=== PATIENT | male | born 1980 | race African-American/Black ===

== ENCOUNTER 2020-11-03 13:51 | Inpatient (IN) ==
[2020-11-03 13:57] VITALS: BMI 32.6
[2020-11-03] MEDS ORDERED: NS 1000 ML 1,000 ML IV ONE (17:58)
[2020-11-03] MEDS ORDERED: NS 1000 ML 1,000 ML ONE (18:09)
[2020-11-03 18:28] LABS: ABG BASE EXCESS 0.3 mmol/L (-2.0-2.0); ABG HCO3 22.9 mmol/L (22-26)
[2020-11-03 18:29] LABS: ABG ALLEN TEST POSITIVE
[2020-11-03 18:47] LABS: BASOPHILS % (AUTO) 0.3 % (0.2-1.0); HEMATOCRIT 49.2 % (42.0-54.0); HEMOGLOBIN 16.7 g/dL (13.5-18.0); LYMPHOCYTES % (AUTO) 11.1 % (21.0-51.0); MEAN CORPUSCULAR HEMOGLOBIN 29.5 pg (27.0-34.0); MEAN CORPUSCULAR VOLUME 86.8 fL (80.0-100.0); MEAN PLATELET VOLUME 8.3 fL (7.4-11.0); MONOCYTES # (AUTO) 0.3 x10^3/uL (0.3-0.8); MONOCYTES % (AUTO) 3.5 % (0.0-13.0); NEUTROPHILS # (AUTO) 7.6 x10^3/uL (2.2-4.8); NEUTROPHILS % (AUTO) 85.1 % (42.0-75.0); PLATELET COUNT 285 X10^3/uL (150.0-450.0); RED BLOOD COUNT 5.66 X10^6/uL (4.7-6.0); RED CELL DISTRIBUTION WIDTH 13.2 % (11.6-16.5); WHITE BLOOD COUNT 8.9 X10^3/uL (3.6-10.0)
[2020-11-03 18:59] LABS: ALANINE AMINOTRANSFERASE 49 Units/L (12-78); ALKALINE PHOSPHATASE 58 Units/L (46-116); ASPARTATE AMINO TRANSFERASE 46 Units/L (15-37); BLOOD UREA NITROGEN 23 mg/dL (7-18); CALCIUM 8.6 mg/dL (8.5-10.1); CARBON DIOXIDE 29.6 mmol/L (21-32); CHLORIDE 100 mmol/L (98-107); COR CA(FOR HYPOALB) 9.4 mg/dL (8.5-10.1); CREATININE 1.62 mg/dL (0.70-1.30); SODIUM 138 mmol/L (136-145); TOTAL PROTEIN 8.3 g/dL (6.4-8.2); eGFR NON BLACK RACES 51 (>60)
[2020-11-03] MEDS ORDERED: TYLENOL 325 MG TAB PO ONE ×2 (19:15→19:17)
--- NOTE | 2020-11-03 19:18 | RAD ---
HISTORYSOB, COVID+STUDYCHEST, 1 VIEWCOMPARISONAugust 2020TECHNIQUEChest radiographic imaging, AP portable projection, 1 imageFINDINGSNo cardiomegaly.Bilateral diffuse airspace opacities in the same distribution as on the previous exam.No pleural effusion.No pneumothorax.No acute osseous abnormality.IMPRESSIONFindings are consistent with the given history of a COVID-19 respiratory infection. Overall, no significant changes when compared to the previous exam given the differences in technique.Electronically signed by: Charles Eckert (Nov 03, 2020 19:16:02)
--- NOTE | 2020-11-03 22:11 | DR.SOBA ---
HPI Time Seen Time Seen by Provider: 11/03/20 21:57 Primary Care Physician Primary Care Physician: TATIANA CEDILLO HPI Comment HPI Comment: According to pt he developed cold like symptoms and was tested pos for covid last thursday .pt has used z pack steroids .has noticed gradual worsening of shortness of breath associated with cough .here to have it checked Has family members at home Complaints Chief Complaint Doctors Comments: shortness of breath Chief Complaint:: PT REPORTS TESTING POSITVE FOR COVID, A WEEK AND PT WAS ON DEXAMETHAZONE, ZPACK ,BR PT REPORTS NOT GETTING ANY BETTER , WEAKNESS, TEMP OF 104.0 AND MOVING WITH > SOB .BR Reviewed Nurses Notes Reviewed: Yes Source History Provided: Patient Mode of Arrival Mode of Arrival: Ambulatory Timing Onset of Chief Complaint: 10/26/20 Duration Duration: Days Context Onset:: With Light Exertion PE Risk Factors:: None Currently on:: Steroids Prehospital Care:: None Modifying Factors Worsens:: Exertion Associated Signs and Symptoms Associated Signs and Symptoms: Cough If Cough Cough: Nonproductive PMH PMH Past Medical History: No Past Surgical History: No Family History History of Family Medical Conditions: No Social History Does patient currently use any type of tobacco product: No Have you used tobacco products in the last 12 months: No Type of Tobacco Use: None Does any household member use tobacco: No Alcohol Use: None Do you use any recreational Drugs:: No Lives With: Family Lives Where: Home Infectious screening In the last 2 months have you had wt loss of >10#?: NO Have you had fever, night sweats or hemotysis?: No Have you traveled outside the country in the last 6 months?: No Isolation: Droplet ROS Review of Systems Constitutional: Chills, Fever, Malaise and Fatigue Eyes: No Symptoms Reported ENTM: No Symptoms Reported Respiratoy: Non-Productive Cough Cardiovascular: No Symptoms Reported Gastrointestinal/Abdominal: No Symptoms Reported Genitourinary: No Symptoms Reported Neurological: No Symptoms Reported Musculoskeletal: No Symptoms Reported Integumentary: No Symptoms Reported PE Vital Signs Vitals: Temperature 96.3 F Pulse Rate 102 Respiratory Rate 20 Blood Pressure 134/78 O2 Sat by Pulse Oximetry 88 General Limitations: No Limitations Head Head Exam: Normal Inspection Eyes Eye exam: PERRL and EOMI ENT ENT Exam: Normal Oropharynx Chest Chest Inspection: Normal Inspection and Symmetric Chest Wall Rise Respiratory Respiratory Exam: Bilateral: Crackles Cardiovascular Cardiovascular Exam: +S1 and +S2 Abdominal Exam Abdominal Exam: Normal Bowel Sounds and Soft Extremities Extremities Exam: Normal Inspection and Full ROM Neurologic Neurological Exam: Alert and Oriented X3 Skin Skin Exam: Normal Color MDM Differential Diagnosis Differential Diagnosis Comment:: covid 19 infection,shortness of breath COURSE Treatment Treatment: labs,cxr .Pt has covid pneumonia.his oxygen over 94% on 5-6 l of oxygen .spoke with Dr. Chan agreed to admit patient remdesivir infusion done tolerated well ROR Labs Reviewed Laboratory Results Reviewed?: Yes Result Diagrams: 11/03/20 18:06 11/03/20 18:06 Laboratory: WBC 8.9 X10^3/uL (3.6-10.0) 11/03/20 18:06 RBC 5.66 X10^6/uL (4.7-6.0) 11/03/20 18:06 Hgb 16.7 g/dL (13.5-18.0) 11/03/20 18:06 Hct 49.2 % (42.0-54.0) 11/03/20 18:06 MCV 86.8 fL (80.0-100.0) 11/03/20 18:06 MCH 29.5 pg (27.0-34.0) 11/03/20 18:06 MCHC 34.0 g/dL (33.0-35.0) 11/03/20 18:06 RDW 13.2 % (11.6-16.5) 11/03/20 18:06 Plt Count 285 X10^3/uL (150.0-450.0) 11/03/20 18:06 MPV 8.3 fL (7.4-11.0) 11/03/20 18:06 Neut % (Auto) 85.1 % (42.0-75.0) H 11/03/20 18:06 Lymph % (Auto) 11.1 % (21.0-51.0) L 11/03/20 18:06 [place] % (Auto) 3.5 % (0.0-13.0) 11/03/20 18:06 Eos % (Auto) 0.0 % (0.9-2.9) L 11/03/20 18:06 Baso % (Auto) 0.3 % (0.2-1.0) 11/03/20 18:06 Neut # (Auto) 7.6 x10^3/uL (2.2-4.8) H 11/03/20 18:06 Lymph # (Auto) 1.0 X10^3/uL (1.3-2.9) L 11/03/20 18:06 [place] # (Auto) 0.3 x10^3/uL (0.3-0.8) 11/03/20 18:06 Eos # (Auto) 0.0 x10^3/uL (0.0-0.2) 11/03/20 18:06 Baso # (Auto) 0.0 X10^3/uL (0.0-0.1) 11/03/20 18:06 Absolute Nucleated RBC 0.3 /100WBC 11/03/20 18:06 D-Dimer 0.63 ug/ml (0.0-0.57) H* 11/03/20 18:06 Sample Site Rr 11/03/20 17:56 ABG pH 7.490 (7.35-7.45) H 11/03/20 17:56 ABG pCO2 30.0 mmHg (35.0-45.0) L 11/03/20 17:56 ABG pO2 53.0 mmHg (80.0-100.0) L 11/03/20 17:56 ABG HCO3 22.9 mmol/L (22-26) 11/03/20 17:56 ABG O2 Saturation 90.0 % (90-100) 11/03/20 17:56 ABG Base Excess 0.3 mmol/L (-2.0-2.0) 11/03/20 17:56 Rc Test Positive 11/03/20 17:56 A-a Gradient 166.0 mmHg 11/03/20 17:56 FiO2 36.0 11/03/20 17:56 Blood Gas Comments Rt traiged elsewhere 11/03/20 17:56 Sodium 138 mmol/L (136-145) 11/03/20 18:06 Corrected Sodium TNP 11/03/20 18:06 Potassium 4.1 mmol/L (3.5-5.1) 11/03/20 18:06 Chloride 100 mmol/L (98-107) 11/03/20 18:06 Carbon Dioxide 29.6 mmol/L (21-32) 11/03/20 18:06 BUN 23 mg/dL (7-18) H 11/03/20 18:06 Creatinine 1.62 mg/dL (0.70-1.30) H 11/03/20 18:06 Est GFR (MDRD) Af Amer > 60 (>60) 11/03/20 18:06 Est GFR (MDRD) Non-Af 51 (>60) L 11/03/20 18:06 Glucose 104 mg/dL (65-99) H 11/03/20 18:06 Calcium 8.6 mg/dL (8.5-10.1) 11/03/20 18:06 Corrected Calcium 9.4 mg/dL (8.5-10.1) 11/03/20 18:06 Ferritin 767 ng/mL (26-388) H 11/03/20 18:06 Total Bilirubin 0.90 mg/dL (0.2-1.0) 11/03/20 18:06 AST 46 Units/L (15-37) H 11/03/20 18:06 ALT 49 Units/L (12-78) 11/03/20 18:06 Alkaline Phosphatase 58 Units/L (46-116) 11/03/20 18:06 C-Reactive Protein 195.20 mg/L (0-3.0) H 11/03/20 18:06 Total Protein 8.3 g/dL (6.4-8.2) H 11/03/20 18:06 Albumin 3.0 g/dL (3.4-5.0) L 11/03/20 18:06 Globulin 5.3 g/dL (2.5-4.5) H 11/03/20 18:06 Albumin/Globulin Ratio 0.6 Ratio (1.1-2.1) L 11/03/20 18:06 Opioid Opioid Risk Tool Total: 0 Total Score Risk Category: Low Risk Copyright: Hang LR predicting aberrant behaviors Diagnosis Discharge Problem: Pneumonia due to COVID-19 virus, Hypoxia
--- NOTE | 2020-11-03 23:01 | CT ---
HISTORYElevated d-dimerSTUDYCTA CHESTCOMPARISONChest radiograph, November 03, 2020TECHNIQUEAxial CT images of the chest were obtained after the administration of 100 mL Omnipaque 350 IV contrast utilizing a CTA protocol. 3D MIPS were performed and reviewed for further evaluation.Radiation dose: 614.00 mGy-cm total DLPFINDINGSNo significant pericardial effusion.No mediastinal or hilar lymphadenopathy.Aorta is normal in caliber without dissection.Contrast density in the main pulmonary artery measures 124 Hounsfield units; limiting evaluation for peripheral pulmonary emboli.No filling defects in the central or proximal lobar pulmonary arteries to suggest a central pulmonary embolus.Airways are widely patent.Thyroid appears normal.No pleural effusion.Bilateral diffuse airspace opacities involving all lobes of both lungs; centered in the perihilar regions.No pneumothorax.No concerning lung parenchymal lesion identified.Imaged portion of the upper abdomen is unremarkable.No acute osseous abnormality.IMPRESSION1. Diffuse bilateral airspace opacities centered in the perihilar regions. Findings are consistent with the given history of a COVID-19 respiratory infection.2. Contrast density in the main pulmonary artery measures 124 Hounsfield units; limiting evaluation for peripheral pulmonary emboli. No filling defects in the central or proximal lobar pulmonary arteries to suggest a central pulmonary embolus.Electronically signed by: Charles Eckert (Nov 03, 2020 22:59:53)
[2020-11-03] MEDS ORDERED: SOLU-Medrol 125 MG VIAL IVP ONE (23:10)
[2020-11-03] MEDS ORDERED: REMDESIVIR 200 MG in NS 250 ML IV 250 ML IV ONE (23:10)
[2020-11-03] MEDS ORDERED: BENADRYL INJ 50 MG VIAL IV ONE (23:10)
[2020-11-04] MEDS ORDERED: REMDESIVIR IV ONE ×3 (00:26→21:30)
[2020-11-04] MEDS ORDERED: BENADRYL INJ 50 MG VIAL ONE (00:26)
[2020-11-04] MEDS ORDERED: SOLU-Medrol 125 MG VIAL ONE ×4 (00:26→21:30)
[2020-11-04] MEDS ORDERED: NS 250 ML IV 250 ML IV ONE ×3 (00:27→11:28)
[2020-11-04] MEDS ORDERED: TYLENOL 325 MG TAB PO ONE ×2 (00:33→00:45)
[2020-11-04] MEDS ORDERED: DECADRON INJ ONE (01:27)
[2020-11-04] MEDS ORDERED: DECADRON INJ IVP SCH (02:00)
[2020-11-04] MEDS ORDERED: VISTARIL PO ONE ×2 (04:09→21:30)
[2020-11-04] MEDS: VISTARIL PO PRN (04:15)
[2020-11-04] MEDS: BROVANA IN SCH (09:50)
[2020-11-04] MEDS: PULMICORT NEB TX 0.5 MG NEB SCH (09:50)
[2020-11-04] MEDS ORDERED: PROTONIX INJ 40 MG VIAL ONE ×2 (11:26→21:31)
[2020-11-04] MEDS ORDERED: LOVENOX INJ 40 MG SYR SC ONE ×2 (11:27→21:30)
[2020-11-04] MEDS ORDERED: ZITHROMAX INJ 500 MG VIAL IV ONE (11:27)
[2020-11-04] MEDS ORDERED: NS 1000 ML 1,000 ML ONE (11:28)
[2020-11-04] MEDS ORDERED: ROBITUSSIN DM ONE ×3 (11:28→21:31)
[2020-11-04] MEDS: SOLU-Medrol 125 MG VIAL IVP SCH ×3 (11:34→22:14)
[2020-11-04] MEDS: PROTONIX INJ 40 MG VIAL IVP SCH ×2 (11:34→22:13)
[2020-11-04] MEDS: LOVENOX INJ 40 MG SYR SC SCH ×2 (11:34→22:12)
[2020-11-04] MEDS: ZITHROMAX INJ 500 MG VIAL 500 MG in NS 250 ML IV 250 ML IV SCH (11:35)
[2020-11-04 11:54] LABS: ABG BASE EXCESS 1.9 mmol/L (-2.0-2.0); ABG HCO3 25.6 mmol/L (22-26)
[2020-11-04 11:55] LABS: ABG ALLEN TEST POS
[2020-11-04 12:27] LABS: BASOPHILS % (AUTO) 0.2 % (0.2-1.0); HEMATOCRIT 45.1 % (42.0-54.0); HEMOGLOBIN 15.4 g/dL (13.5-18.0); LYMPHOCYTES # (AUTO) 0.6 X10^3/uL (1.3-2.9); MEAN CORPUSCULAR HEMOGLOBIN 29.5 pg (27.0-34.0); MEAN CORPUSCULAR VOLUME 86.7 fL (80.0-100.0); MONOCYTES # (AUTO) 0.2 x10^3/uL (0.3-0.8); MONOCYTES % (AUTO) 3.3 % (0.0-13.0); NEUTROPHILS % (AUTO) 83.5 % (42.0-75.0); PLATELET COUNT 278 X10^3/uL (150.0-450.0); RED BLOOD COUNT 5.21 X10^6/uL (4.7-6.0); RED CELL DISTRIBUTION WIDTH 13.1 % (11.6-16.5); WHITE BLOOD COUNT 4.8 X10^3/uL (3.6-10.0)
[2020-11-04] MEDS: ROBITUSSIN DM PO SCH ×3 (12:37→22:13)
[2020-11-04 12:41] LABS: ALANINE AMINOTRANSFERASE 139 Units/L (12-78); ALBUMIN 2.4 g/dL (3.4-5.0); ALKALINE PHOSPHATASE 69 Units/L (46-116); ASPARTATE AMINO TRANSFERASE 128 Units/L (15-37); BLOOD UREA NITROGEN 21 mg/dL (7-18); CALCIUM 8.2 mg/dL (8.5-10.1); CARBON DIOXIDE 26.3 mmol/L (21-32); CHLORIDE 104 mmol/L (98-107); COR CA(FOR HYPOALB) 9.5 mg/dL (8.5-10.1); COR NA(FOR HYPERGLY) 141 mmol/L (136-145); CREATININE 1.39 mg/dL (0.70-1.30); SODIUM 140 mmol/L (136-145); TOTAL PROTEIN 7.3 g/dL (6.4-8.2); eGFR NON BLACK RACES > 60 (>60)
[2020-11-04] MEDS: DUONEB 0.5 MG/3 MG (3 mL) NEB SCH ×2 (13:50→18:18)
[2020-11-04] MEDS ORDERED: NS 100 ML IV + SPIKE MINIBAG* 100 ML IV ONE (21:31)
[2020-11-04] MEDS: REMDESIVIR 100 MG in NS 100 ML IV + SPIKE MINIBAG* 120 ML IV SCH (22:13)
[2020-11-04] MEDS: AMBIEN PO PRN (22:18)
[2020-11-05 05:28] LABS: ABG ALLEN TEST POS; ABG BASE EXCESS 2.4 mmol/L (-2.0-2.0); ABG HCO3 26.4 mmol/L (22-26)
[2020-11-05] MEDS: SOLU-Medrol 125 MG VIAL IVP SCH ×4 (05:44→21:20)
[2020-11-05 07:00] LABS: BASOPHILS % (AUTO) 0.1 % (0.2-1.0); HEMATOCRIT 44.6 % (42.0-54.0); HEMOGLOBIN 15.1 g/dL (13.5-18.0); LYMPHOCYTES # (AUTO) 0.8 X10^3/uL (1.3-2.9); LYMPHOCYTES % (AUTO) 6.3 % (21.0-51.0); MEAN CORPUSCULAR HEMOGLOBIN 29.1 pg (27.0-34.0); MEAN CORPUSCULAR HGB CONC 33.9 g/dL (33.0-35.0); MEAN PLATELET VOLUME 8.5 fL (7.4-11.0); MONOCYTES # (AUTO) 0.5 x10^3/uL (0.3-0.8); MONOCYTES % (AUTO) 4.2 % (0.0-13.0); NEUTROPHILS # (AUTO) 10.7 x10^3/uL (2.2-4.8); NEUTROPHILS % (AUTO) 89.4 % (42.0-75.0); PLATELET COUNT 308 X10^3/uL (150.0-450.0); RED BLOOD COUNT 5.19 X10^6/uL (4.7-6.0)
[2020-11-05 07:35] LABS: ALANINE AMINOTRANSFERASE 145 Units/L (12-78); ALBUMIN 2.4 g/dL (3.4-5.0); ALKALINE PHOSPHATASE 66 Units/L (46-116); ASPARTATE AMINO TRANSFERASE 79 Units/L (15-37); BLOOD UREA NITROGEN 28 mg/dL (7-18); CALCIUM 8.2 mg/dL (8.5-10.1); CARBON DIOXIDE 26.2 mmol/L (21-32); CHLORIDE 107 mmol/L (98-107); COR CA(FOR HYPOALB) 9.5 mg/dL (8.5-10.1); COR NA(FOR HYPERGLY) 143 mmol/L (136-145); SODIUM 142 mmol/L (136-145); TOTAL PROTEIN 7.1 g/dL (6.4-8.2); eGFR NON BLACK RACES > 60 (>60)
--- NOTE | 2020-11-05 08:33 | DR.H&P ---
H&P - History & Physical for Day of: H&P Date: 11/04/20 - Chief Complaint Chief Complaint: According to pt he developed cold like symptoms and was tested pos for covid last thursday .pt has used z pack steroids .has noticed gradual worsening of shortness of breath associated with cough .here to have it checked. Has family members at home - Family History Family Medical History: Hypertension - Social History Does patient currently use any type of tobacco product: No Have you used tobacco products in the last 12 months: No Type of Tobacco Use: None Does any household member use tobacco: No Alcohol Use: None Drug Use: None - Medications Home Medications: No Known Drug Allergies Allergy (Verified 11/03/20 13:52) CONTINUE taking the following medications albuterol sulfate 2 puff INHALATION QID PRN 11/04/20 [History] dexamethasone 4 mg PO DAILY 11/04/20 [History] meclizine 25 mg PO Q8H PRN 11/04/20 [History] olmesartan 20 mg PO DAILY 11/04/20 [History] - Physical Exam Vital Signs: Temperature 97.8 F Pulse Rate [Left] 76 Pulse Rate 85 Respiratory Rate 20 Blood Pressure [Left Arm] 142/84 Blood Pressure 134/78 O2 Sat by Pulse Oximetry 91 - Allergies Allergies/Adverse Reactions: Allergies Allergy/AdvReac Type Severity Reaction Status Date / Time No Known Drug Allergies Allergy Verified 11/03/20 13:52
[2020-11-05] MEDS ORDERED: TORADOL 30 MG VIAL IVP ONE (08:34)
[2020-11-05] MEDS ORDERED: TYLENOL 500 MG TAB EXTRA STRENGTH PO PRN (08:35)
[2020-11-05] MEDS ORDERED: REMDESIVIR 100 MG in NS 100 ML IV + SPIKE MINIBAG* 120 ML IV SCH (09:00)
[2020-11-05] MEDS: BROVANA IN SCH ×2 (09:15→20:36)
[2020-11-05] MEDS: DUONEB 0.5 MG/3 MG (3 mL) NEB SCH ×3 (09:15→20:36)
[2020-11-05] MEDS: PULMICORT NEB TX 0.5 MG NEB SCH ×2 (09:15→20:36)
[2020-11-05] MEDS: PROTONIX INJ 40 MG VIAL IVP SCH ×2 (09:24→21:18)
[2020-11-05] MEDS: ROBITUSSIN DM PO SCH ×4 (09:25→21:10)
[2020-11-05] MEDS: ZITHROMAX INJ 500 MG VIAL 500 MG in NS 250 ML IV 250 ML IV SCH (09:26)
[2020-11-05] MEDS: LOVENOX INJ 40 MG SYR SC SCH ×2 (09:26→21:15)
[2020-11-05] MEDS ORDERED: NS 1/2 1000 ML IV 1,000 ML IV ONE (20:21)
[2020-11-05] MEDS: NS 1/2 1000 ML IV 1,000 ML IV SCH (21:13)
[2020-11-05] MEDS: REMDESIVIR 100 MG in NS 100 ML IV + SPIKE MINIBAG* 120 ML IV SCH (21:17)
[2020-11-05] MEDS: AMBIEN PO PRN (21:30)
[2020-11-06] MEDS: SOLU-Medrol 125 MG VIAL IVP SCH ×4 (02:11→21:40)
[2020-11-06] MEDS: NS 1/2 1000 ML IV 1,000 ML IV SCH ×3 (06:30→21:40)
[2020-11-06 07:48] LABS: BASOPHILS % (AUTO) 0.2 % (0.2-1.0); HEMATOCRIT 42.3 % (42.0-54.0); HEMOGLOBIN 14.1 g/dL (13.5-18.0); LYMPHOCYTES # (AUTO) 0.4 X10^3/uL (1.3-2.9); LYMPHOCYTES % (AUTO) 2.4 % (21.0-51.0); MEAN CORPUSCULAR HEMOGLOBIN 28.8 pg (27.0-34.0); MEAN CORPUSCULAR HGB CONC 33.4 g/dL (33.0-35.0); MEAN PLATELET VOLUME 8.3 fL (7.4-11.0); MONOCYTES # (AUTO) 0.6 x10^3/uL (0.3-0.8); MONOCYTES % (AUTO) 3.4 % (0.0-13.0); NEUTROPHILS # (AUTO) 17.7 x10^3/uL (2.2-4.8); PLATELET COUNT 349 X10^3/uL (150.0-450.0); RED BLOOD COUNT 4.92 X10^6/uL (4.7-6.0); RED CELL DISTRIBUTION WIDTH 13.1 % (11.6-16.5); WHITE BLOOD COUNT 18.9 X10^3/uL (3.6-10.0)
[2020-11-06 07:59] LABS: ALANINE AMINOTRANSFERASE 153 Units/L (12-78); ALBUMIN 2.3 g/dL (3.4-5.0); ALKALINE PHOSPHATASE 64 Units/L (46-116); ASPARTATE AMINO TRANSFERASE 59 Units/L (15-37); BLOOD UREA NITROGEN 27 mg/dL (7-18); CALCIUM 7.8 mg/dL (8.5-10.1); CARBON DIOXIDE 25.3 mmol/L (21-32); CHLORIDE 108 mmol/L (98-107); COR CA(FOR HYPOALB) 9.2 mg/dL (8.5-10.1); COR NA(FOR HYPERGLY) 142 mmol/L (136-145); CREATININE 1.26 mg/dL (0.70-1.30); SODIUM 141 mmol/L (136-145); TOTAL PROTEIN 6.4 g/dL (6.4-8.2); eGFR NON BLACK RACES > 60 (>60)
[2020-11-06 08:29] LABS: PLATELET MORPHOLOGY COMMENT NORMAL (NORMAL)
[2020-11-06] MEDS: PULMICORT NEB TX 0.5 MG NEB SCH ×2 (09:05→22:30)
[2020-11-06] MEDS: DUONEB 0.5 MG/3 MG (3 mL) NEB SCH ×2 (09:05→14:12)
[2020-11-06] MEDS: BROVANA IN SCH ×2 (09:05→22:30)
[2020-11-06] MEDS: ROBITUSSIN DM PO SCH ×4 (09:27→23:55)
[2020-11-06] MEDS: VISTARIL PO PRN ×2 (09:28→21:40)
[2020-11-06] MEDS: PROTONIX INJ 40 MG VIAL IVP SCH ×2 (09:29→21:40)
[2020-11-06] MEDS: ZITHROMAX INJ 500 MG VIAL 500 MG in NS 250 ML IV 250 ML IV SCH (09:29)
[2020-11-06] MEDS ORDERED: NS 1/2 1000 ML IV 1,000 ML IV ONE ×2 (09:45→20:48)
[2020-11-06] MEDS: LOVENOX INJ 40 MG SYR SC SCH ×2 (09:57→21:40)
--- NOTE | 2020-11-06 10:01 | RAD ---
HISTORYFollow-up COVID-19STUDYChest AP [id number]/21/2021 chest x-ray and CTA chestFINDINGSHeart is minimally enlarged. No congestive heart failure is noted. Diffuse bilateral ground-glass and alveolar infiltrates are present right greater than left unchanged from the prior examination. No pleural effusions are identified. Bony thorax is unremarkable.IMPRESSIONNo change bilateral ground-glass and alveolar infiltrates right greater than leftElectronically signed by: TWILA SALDAÑA (Nov 06, 2020 09:59:28)
[2020-11-06 11:24] LABS: ABG ALLEN TEST POSITIVE; ABG BASE EXCESS -0.4 mmol/L (-2.0-2.0); ABG HCO3 22.3 mmol/L (22-26)
[2020-11-06] MEDS: XOPENEX 1.25 MG/3 ML NEBULE NEB SCH ×3 (14:12→23:30)
[2020-11-06] MEDS ORDERED: TORADOL 15 MG VIAL IVP PRN (17:08)
[2020-11-06] MEDS: ZESTRIL TAB 5 MG PO SCH (17:45)
[2020-11-06] MEDS: AMBIEN PO PRN (21:40)
[2020-11-06] MEDS: REMDESIVIR 100 MG in NS 100 ML IV + SPIKE MINIBAG* 120 ML IV SCH (21:40)
[2020-11-07] MEDS: SOLU-Medrol 125 MG VIAL IVP SCH ×4 (02:25→20:52)
[2020-11-07 05:19] LABS: ABG BASE EXCESS 0.9 mmol/L (-2.0-2.0); ABG HCO3 23.6 mmol/L (22-26)
[2020-11-07 05:20] LABS: ABG ALLEN TEST POS
[2020-11-07] MEDS: XOPENEX 1.25 MG/3 ML NEBULE NEB SCH ×3 (06:08→20:15)
[2020-11-07 06:52] LABS: BASOPHILS % (AUTO) 0.1 % (0.2-1.0); HEMATOCRIT 42.7 % (42.0-54.0); HEMOGLOBIN 14.3 g/dL (13.5-18.0); LYMPHOCYTES # (AUTO) 0.5 X10^3/uL (1.3-2.9); LYMPHOCYTES % (AUTO) 3.4 % (21.0-51.0); MEAN CORPUSCULAR HEMOGLOBIN 28.8 pg (27.0-34.0); MEAN CORPUSCULAR HGB CONC 33.5 g/dL (33.0-35.0); MEAN CORPUSCULAR VOLUME 86.1 fL (80.0-100.0); MEAN PLATELET VOLUME 8.5 fL (7.4-11.0); MONOCYTES # (AUTO) 0.4 x10^3/uL (0.3-0.8); MONOCYTES % (AUTO) 2.7 % (0.0-13.0); NEUTROPHILS # (AUTO) 14.9 x10^3/uL (2.2-4.8); NEUTROPHILS % (AUTO) 93.8 % (42.0-75.0); PLATELET COUNT 367 X10^3/uL (150.0-450.0); RED BLOOD COUNT 4.96 X10^6/uL (4.7-6.0); RED CELL DISTRIBUTION WIDTH 13.1 % (11.6-16.5); WHITE BLOOD COUNT 15.8 X10^3/uL (3.6-10.0)
[2020-11-07 07:44] LABS: ALANINE AMINOTRANSFERASE 231 Units/L (12-78); ALBUMIN 2.3 g/dL (3.4-5.0); ALKALINE PHOSPHATASE 65 Units/L (46-116); ASPARTATE AMINO TRANSFERASE 48 Units/L (15-37); BLOOD UREA NITROGEN 20 mg/dL (7-18); CALCIUM 7.7 mg/dL (8.5-10.1); CARBON DIOXIDE 25.6 mmol/L (21-32); CHLORIDE 108 mmol/L (98-107); COR CA(FOR HYPOALB) 9.1 mg/dL (8.5-10.1); COR NA(FOR HYPERGLY) 143 mmol/L (136-145); CREATININE 1.18 mg/dL (0.70-1.30); SODIUM 142 mmol/L (136-145); TOTAL PROTEIN 6.3 g/dL (6.4-8.2); eGFR NON BLACK RACES > 60 (>60)
[2020-11-07 07:52] LABS: BAND NEUTROPHILS % 1 % (0-10); PLATELET MORPHOLOGY COMMENT NORMAL (NORMAL)
--- NOTE | 2020-11-07 08:06 | RAD ---
HISTORYCOVID, SOB HTNSTUDYCHEST, 1 [id number]/24/2021FINDINGSThe trachea is midline. Normal heart size. There is unchanged diffuse ground-glass and alveolar radiopacities in the right lung and a more focal confluent zone in the left midlung zone. There is no effusions or pneumothorax.IMPRESSIONStable diffuse right lung and confluent left midlung zones alveolar radiopacities.Electronically signed by: Nirali Kincaid (Nov 07, 2020 08:05:31)
[2020-11-07] MEDS: LOVENOX INJ 40 MG SYR SC SCH ×2 (08:34→20:54)
[2020-11-07] MEDS: ZESTRIL TAB 5 MG PO SCH (08:36)
[2020-11-07] MEDS: ROBITUSSIN DM PO SCH ×5 (08:36→21:04)
[2020-11-07] MEDS: PROTONIX INJ 40 MG VIAL IVP SCH ×2 (08:36→20:52)
[2020-11-07] MEDS: ZITHROMAX INJ 500 MG VIAL 500 MG in NS 250 ML IV 250 ML IV SCH (08:37)
[2020-11-07] MEDS: NS 1/2 1000 ML IV 1,000 ML IV SCH ×3 (08:55→23:56)
[2020-11-07] MEDS: PULMICORT NEB TX 0.5 MG NEB SCH ×2 (09:35→20:15)
[2020-11-07] MEDS: BROVANA IN SCH ×2 (09:35→20:15)
[2020-11-07] MEDS ORDERED: NS 1/2 1000 ML IV 1,000 ML IV ONE (19:06)
--- NOTE | 2020-11-07 20:37 | RAD ---
KNEE, AP/LAT LEFTHISTORY: B/L PAIN AND JOINT SWELLINGStudy: 2 views of the left kneeComparison:NoneFindings:No acute fractures or dislocations. Joint spaces are maintained. No knee joint effusion. Soft tissues are unremarkable.IMPRESSION:1. No acute abnormality of the left knee.Electronically signed by: AMRITA MORROW (Nov 07, 2020 20:35:24)
--- NOTE | 2020-11-07 20:37 | RAD ---
KNEE, AP/LAT RIGHTHISTORY: B/L PAIN AND JOINT SWELLINGStudy: 2 views of the right kneeComparison:NoneFindings:No acute fractures or dislocations. Joint spaces are maintained. No knee joint effusion. Soft tissues are unremarkable.IMPRESSION:1. No acute abnormality of the right knee.Electronically signed by: AMRITA MORROW (Nov 07, 2020 20:35:34)
[2020-11-07] MEDS: AMBIEN PO PRN (20:52)
[2020-11-07] MEDS: VISTARIL PO PRN (20:52)
[2020-11-07] MEDS: REMDESIVIR 100 MG in NS 100 ML IV + SPIKE MINIBAG* 120 ML IV SCH (20:53)
[2020-11-08] MEDS: XOPENEX 1.25 MG/3 ML NEBULE NEB SCH ×3 (00:49→12:00)
[2020-11-08] MEDS: SOLU-Medrol 125 MG VIAL IVP SCH ×3 (02:13→14:01)
[2020-11-08] MEDS ORDERED: NS 1/2 1000 ML IV 1,000 ML IV ONE (05:00)
[2020-11-08] MEDS: NS 1/2 1000 ML IV 1,000 ML IV SCH ×2 (05:18→11:03)
[2020-11-08] MEDS: PULMICORT NEB TX 0.5 MG NEB SCH (08:19)
[2020-11-08] MEDS: BROVANA IN SCH (08:19)
--- NOTE | 2020-11-08 08:50 | RAD ---
HISTORYCOVID PNEUMONIASTUDYCHEST, 1 [id number]/25/2021FINDINGSThe cardiomediastinal silhouette is stable. Similar bilateral airspace opacities. The bony thorax appears intact.IMPRESSIONNo significant change.Electronically signed by: TWILA SALDAÑA (Nov 08, 2020 08:48:58)
[2020-11-08 08:52] LABS: BASOPHILS % (AUTO) 0.1 % (0.2-1.0); HEMATOCRIT 44.4 % (42.0-54.0); HEMOGLOBIN 14.8 g/dL (13.5-18.0); LYMPHOCYTES # (AUTO) 0.4 X10^3/uL (1.3-2.9); LYMPHOCYTES % (AUTO) 2.1 % (21.0-51.0); MEAN CORPUSCULAR HEMOGLOBIN 28.7 pg (27.0-34.0); MEAN CORPUSCULAR HGB CONC 33.4 g/dL (33.0-35.0); MEAN CORPUSCULAR VOLUME 85.8 fL (80.0-100.0); MEAN PLATELET VOLUME 8.3 fL (7.4-11.0); MONOCYTES # (AUTO) 0.7 x10^3/uL (0.3-0.8); MONOCYTES % (AUTO) 3.6 % (0.0-13.0); NEUTROPHILS # (AUTO) 17.5 x10^3/uL (2.2-4.8); NEUTROPHILS % (AUTO) 94.2 % (42.0-75.0); PLATELET COUNT 388 X10^3/uL (150.0-450.0); RED BLOOD COUNT 5.18 X10^6/uL (4.7-6.0); RED CELL DISTRIBUTION WIDTH 13.2 % (11.6-16.5); WHITE BLOOD COUNT 18.5 X10^3/uL (3.6-10.0)
[2020-11-08 09:10] LABS: ALANINE AMINOTRANSFERASE 165 Units/L (12-78); ALBUMIN 2.4 g/dL (3.4-5.0); ALKALINE PHOSPHATASE 65 Units/L (46-116); ASPARTATE AMINO TRANSFERASE 25 Units/L (15-37); BLOOD UREA NITROGEN 20 mg/dL (7-18); CALCIUM 7.6 mg/dL (8.5-10.1); CARBON DIOXIDE 26.3 mmol/L (21-32); CHLORIDE 107 mmol/L (98-107); COR CA(FOR HYPOALB) 8.9 mg/dL (8.5-10.1); COR NA(FOR HYPERGLY) 142 mmol/L (136-145); SODIUM 141 mmol/L (136-145); TOTAL PROTEIN 6.2 g/dL (6.4-8.2); eGFR NON BLACK RACES > 60 (>60)
[2020-11-08] MEDS: ZITHROMAX INJ 500 MG VIAL 500 MG in NS 250 ML IV 250 ML IV SCH (09:30)
[2020-11-08] MEDS: LOVENOX INJ 40 MG SYR SC SCH (09:30)
[2020-11-08] MEDS: ZESTRIL TAB 5 MG PO SCH (09:31)
[2020-11-08] MEDS: ROBITUSSIN DM PO SCH ×3 (09:33→16:17)
[2020-11-08] MEDS: PROTONIX INJ 40 MG VIAL IVP SCH (09:34)
[2020-11-08 10:09] LABS: BAND NEUTROPHILS % 2 % (0-10); PLATELET MORPHOLOGY COMMENT NORMAL (NORMAL)
[2020-11-08 15:44] LABS: ABG HCO3 25.5 mmol/L (22-26)
[2020-11-08 15:45] LABS: ABG ALLEN TEST POS
[2020-11-08 16:17] VITALS: BP 161/90
== END 2020-11-08 18:50 | disposition home or self-care (01) | DRG 177 ==
LOC: ER 13:51 → OBS 11-04 01:23 → MED/SURG 11-04 23:30
PROVIDERS: ADMIT Internal Medicine; ATTEND Internal Medicine
DX: R09.02 Hypoxemia; E86.0 Dehydration; N28.9 Disorder of kidney and ureter, unspecified; R79.89 Other specified abnormal findings of blood chemistry; R26.89 Other abnormalities of gait and mobility; J12.82 Pneumonia due to coronavirus disease 2019; M25.561 Pain in right knee; R73.09 Other abnormal glucose; M25.562 Pain in left knee; R79.82 Elevated C-reactive protein (CRP); U07.1 COVID-19; R03.0 Elevated blood-pressure reading, without diagnosis of hypertension